=== PATIENT | male | born 1980 | race Caucasian/White ===

== ENCOUNTER 2024-06-01 13:08 | Emergency (ER) | payer OTHER, SELFPAY ==
[2024-06-01] VITALS (24 sets, daily range): BP systolic 91–137; BP diastolic 71–103; PULSE 101–114; RESP 24–30; TEMP 36.5; O2SAT 89–96; BMI 27.7
--- NOTE | 2024-06-01 13:36 | CRLHL7_ITS ---
For Patients: As a result of the Century Cures Act, medical imaging exams and procedure reports are released immediately into your electronic medical record. You may view this report before your referring provider. If you have questions, please contact your health care provider. INDICATION: Abdominal pain TECHNIQUE: CT abdomen and pelvis with 95 mL Isovue 370 COMPARISON: None. FINDINGS: Lower chest: Centrilobular nodules in the lower lobes likely infectious/inflammatory. Bronchial wall thickening Liver: Normal in size and attenuation. No suspicious masses. Gallbladder and bile ducts: No stones or inflammation. No biliary dilatation. Pancreas: Unremarkable. No mass or inflammation. Spleen: Normal in size. No masses. Adrenal glands: Normal in size. No nodules. Kidneys: Left renal cyst. GI tract: Abundant stool in the colon. Appendectomy. Bowel appears unremarkable. Vasculature: Abdominal aorta is normal in caliber. Lymph nodes: No lymphadenopathy. Peritoneum/Abdominal Wall: Unremarkable. No sign of mass or infiltration. No free air or significant free fluid. Pelvis: Unremarkable. No pelvic masses. Bones: Unremarkable for age. IMPRESSION: 1. No acute findings in the abdomen or pelvis. Please note that all CT scans at this facility use dose modulation, iterative reconstruction, and/or weight-based dosing when appropriate to reduce radiation dose to as low as reasonably achievable. Dictated by Marily Padilla MD @ 06/01/2024 4:27:50 PM (Electronically Signed)
--- NOTE | 2024-06-01 13:36 | CRLHL7_ITS ---
For Patients: As a result of the Century Cures Act, medical imaging exams and procedure reports are released immediately into your electronic medical record. You may view this report before your referring provider. If you have questions, please contact your health care provider. INDICATION: Shortness of breath previous pneumonia TECHNIQUE: CT chest with 95 mL Isovue 370 COMPARISON: None. FINDINGS: Lungs and pleura: Diffuse bronchial wall thickening with diffuse centrilobular nodules findings likely infectious/inflammatory. No effusion. 6 millimeter nodule right lower lobe 5/128 Heart and vasculature: Heart size is normal. Thoracic aorta and pulmonary artery are normal in caliber. No pulmonary emboli. Lymph nodes/mediastinum: No mediastinal, hilar, or axillary adenopathy. Chest wall: No masses. Upper abdomen: No significant findings. Bones: Unremarkable for age. IMPRESSION: 1. No pulmonary emboli. Diffuse bronchial wall thickening with diffuse subtle centrilobular nodules likely infectious/inflammatory. 2. 6 millimeter right lower lobe pulmonary nodule follow-up per Fleischner society guidelines Please note that all CT scans at this facility use dose modulation, iterative reconstruction, and/or weight-based dosing when appropriate to reduce radiation dose to as low as reasonably achievable. Dictated by Marily Padilla MD @ 06/01/2024 4:05:41 PM (Electronically Signed)
[2024-06-01] MEDS: ALBUTEROL SULFATE 2.5 MG/3 ML VIAL.NEB NEB ×3 (14:06→16:06)
[2024-06-01 14:11] LABS: Lactate Sepsis w/Reflex* 1.6 mmol/L (0.5-1.9)
[2024-06-01 14:12] LABS: Basophils Percent Auto 0.4 % (0.0-3.0); Eosinophils Percent Auto 2.3 % (0.0-7.0); Hematocrit 45.3 % (37.0-53.0); Hemoglobin* 15.2 gm/dL (13.5-17.5); Immature Granulocytes Pct Auto 0.2 %; Lymphocytes Percent Auto 13.8 % (20-44); Mean Corpuscular HGB Conc 34 gm/dL (32-36); Mean Corpuscular Hemoglobin 30 pg (26-34); Mean Corpuscular Volume 89 fL (80-100); Neutrophils Percent Auto 76.3 % (42.0-72.0); Platelet Count* 295 K/uL (140-440); Red Blood Count 5.08 m/uL (4.30-5.90); White Blood Count* 14.06 K/uL (4.50-11.00)
[2024-06-01 14:14] LABS: Slide Review Reflex No
[2024-06-01 14:27] LABS: Albumin* 4.3 g/dL (3.3-5.0); Chloride* 104 mmol/L (96-114); Potassium* 4.8 mmol/L (3.6-5.1); Sodium* 137 mmol/L (135-149)
[2024-06-01 14:29] LABS: Creatinine* 1.2 mg/dL (0.5-1.5); Est. Creatinine Clearance* 88.78; Estimated Glomerular Filt Rate 76 ml/min; Lipase* 76 U/L (23-300)
[2024-06-01 14:30] LABS: Alanine Aminotransferase* 17 U/L (4-50); Alkaline Phosphatase* 30 U/L (40-150); Anion Gap 8 mEq/L (7-15); Aspartate Amino Transferase* 25 U/L (12-35); Bilirubin Total* 0.9 mg/dL (0.1-1.5); Blood Urea Nitrogen* 25 mg/dL (5-24); Calcium* 8.7 mg/dL (8.4-10.6); Carbon Dioxide* 25 mmol/L (20-32); Glucose* 90 mg/dL (60-115); Magnesium* 2.3 mg/dL (1.5-2.6); Total Protein* 7.1 g/dL (6.0-8.3)
[2024-06-01 14:41] LABS: PCR FLU A Negative PCR FLU A (Negative); PCR FLU B Negative PCR FLU B (Negative); PCR RSV Negative PCR RSV (Negative); SARS PCR* Negative SARS-CoV-2 (Negative)
[2024-06-01 14:53] LABS: Appearance Urine Clear (Clear); Bilirubin Urine Negative (Negative); Blood Urine Negative (Negative); Color Urine Yellow (Yellow); Glucose Urine Negative (Negative); Ketones Urine Negative (Negative); Leukocyte Esterase Urine Negative (Negative); Nitrite Urine Negative (Negative); Protein Urine Negative (Negative); Urobilinogen Urine 0.2 (0.2-1.0)
[2024-06-01 15:11] LABS: RBC Urine 0-2 (0-2); WBC Urine 0-2 (0-5)
--- NOTE | 2024-06-01 16:06 | ED_ITS ---
HPI - SOB/Dyspnea General Date Seen: 06/01/24 Chief Complaint: Shortness of Breath/Dyspnea Stated Complaint: Shortness of breath, cough Time Seen by Provider: 06/01/24 13:09 Source: patient Mode of arrival: ambulatory Limitations: no limitations History of Present Illness HPI Narrative: Patient is a 44-year-old male presenting to the emergency department for shortness of breath and a cough. He states about 3 weeks ago he started developing a cough and was started to get more short of breath a week and half ago. That time he was started on amoxicillin and prednisone. He had a reaction to the prednisone and stop that after 2 days but continued the amoxicillin and finished out the course. He continued to have symptoms so was switched to azithromycin. He finished that earlier this week in symptoms persisted. States whenever he lays down he has a big coughing fit and is having difficulty sleeping due to this. He has been using an inhaler prescribed to him for this coughing episodes but has not been using a spacer for it. Has not noticed any improvement with the inhalers. Denies any history of COPD or asthma. Has not had symptoms like this before. Has not had any fevers at home. Denies chest pain, abdominal pain, headache, lightheadedness, dizziness, weakness, numbness. No other concerns noted at this time. Of note he is also having issues with constipation. He has been having issues constipation now for several weeks also. He does note he has had previous surgeries on his small intestine and has had frequent small bowel obstructions since then. He has had small bowel movement over the past few weeks every couple days but they are not his normal amount. He is having some abdominal discomfort that has been persistent for the past 3 weeks that he gets whenever he gets very constipated. Has been using MiraLax without much improvement. Related Data Home Medications ?Medication ?Instructions ?Recorded ?Confirmed zolpidem 10 mg tablet 10 mg PO QPM PRN insomnia 05/20/24 05/20/24 Previous Rx's ?Medication ?Instructions ?Recorded albuterol sulfate 90 mcg/actuation 2 puff inhalation Q4-6H PRN 05/20/24 aerosol inhaler shortness of breath or wheezing #6.7 grams benzonatate 200 mg capsule 200 mg PO QHS PRN cough #10 caps 05/20/24 azithromycin 250 mg tablet See Rx Instructions PO .COMPLEX #6 05/24/24 tabs fluticasone propionate 110 1 puff inhalation BID #12 grams 06/01/24 mcg/actuation HFA aerosol inhaler ipratropium bromide 17 1 puff inhalation QID PRN 06/01/24 mcg/actuation HFA aerosol inhaler shortness of breath or wheezing #12.9 grams levofloxacin 750 mg tablet 750 mg PO Q24H #5 tabs 06/01/24 prednisone 20 mg tablet 40 mg (2 x 20 mg) PO DAILY #10 tabs 06/01/24 Allergies Allergy/AdvReac Type Severity Reaction Status Date / Time prednisone Allergy Verified 06/01/24 14:44 Review of Systems Status of ROS: Reports: 10 or more systems reviewed and unremarkable except as noted in History and below PFSH PFS Social History Smoking Status: Never smoker Do you use any of these nicotine containing products: None Second hand tobacco smoke exposure: No How often do you have a drink containing alcohol: never How often do you have six or more drinks on one occasion: Never AUDIT-C Alcohol total score: 0 Non-prescribed substance use: denies use service: Yes Exam Narrative: Exam Narrative: Const: Well-nourished, Well-developed, in moderate distress Eyes: PERRL, no conjunctival injection, and symmetrical lids HENT: Atraumatic external nose and ears. Moist mucous membranes. Neck: Symmetric, trachea midline, No thyromegaly. CVS: Tachycardic, No murmurs or gallops. Peripheral pulses 2+ and equal in all extremities RESP: Increased respiratory effort noted with diffuse mild to moderate wheezing. Tachypneic GI: Mild diffuse abdominal tenderness, Nondistended, No rebound or guarding. MSK:Extremities w/o deformity, Normal Active ROM Skin: Warm, Dry. No rashes or lesions. Neuro: Normal Muscle tone, No focal neurological deficits. Psych: Awake, Alert, & Oriented x3. Appropriate mood and affect. Const: Vital Signs, click to edit/add: Vital Signs - 24 hr 06/01/24 13:16 06/01/24 13:17 06/01/24 13:17 Temperature 97.7 F Pulse Rate 103 H 105 H Pulse Rate [Pulse Oximeter] 106 H Respiratory Rate 30 H Blood Pressure Blood Pressure [Ri ght Upper Arm] 115/94 H Pulse Oximetry 96 96 96 Oxygen Delivery Me thod Room Air 06/01/24 13:19 06/01/24 13:30 06/01/24 13:32 Temperature Pulse Rate 106 H 105 H 101 H Pulse Rate [Pulse Oximeter] Respiratory Rate 28 H 26 H Blood Pressure 115/94 H 116/92 H Blood Pressure [Ri ght Upper Arm] Pulse Oximetry 95 94 95 Oxygen Delivery Me thod 06/01/24 13:45 06/01/24 14:00 06/01/24 14:03 Temperature Pulse Rate 104 H 105 H 107 H Pulse Rate [Pulse Oximeter] Respiratory Rate 24 Blood Pressure 114/77 Blood Pressure [Ri ght Upper Arm] Pulse Oximetry 95 94 94 Oxygen Delivery Me thod 06/01/24 14:15 06/01/24 14:33 06/01/24 14:35 Temperature Pulse Rate 107 H 108 H 105 H Pulse Rate [Pulse Oximeter] Respiratory Rate Blood Pressure 137/83 Blood Pressure [Ri ght Upper Arm] Pulse Oximetry 93 94 95 Oxygen Delivery Me thod 06/01/24 14:45 06/01/24 15:00 06/01/24 15:02 Temperature Pulse Rate 102 H 111 H 106 H Pulse Rate [Pulse Oximeter] Respiratory Rate 24 28 H Blood Pressure 126/84 Blood Pressure [Ri ght Upper Arm] Pulse Oximetry 94 92 91 Oxygen Delivery Me thod 06/01/24 15:03 06/01/24 15:15 06/01/24 15:30 Temperature Pulse Rate 111 H 103 H 107 H Pulse Rate [Pulse Oximeter] Respiratory Rate 24 Blood Pressure Blood Pressure [Ri ght Upper Arm] Pulse Oximetry 91 96 94 Oxygen Delivery Me thod 06/01/24 15:32 06/01/24 15:45 06/01/24 16:00 Temperature Pulse Rate 110 H 109 H 112 H Pulse Rate [Pulse Oximeter] Respiratory Rate 26 H 29 H Blood Pressure 110/78 Blood Pressure [Ri ght Upper Arm] Pulse Oximetry 93 91 89 Oxygen Delivery Me thod 06/01/24 16:02 06/01/24 16:15 06/01/24 16:30 Temperature Pulse Rate 108 H 103 H 106 H Pulse Rate [Pulse Oximeter] Respiratory Rate Blood Pressure 122/103 H Blood Pressure [Ri ght Upper Arm] Pulse Oximetry 89 95 93 Oxygen Delivery Me thod 06/01/24 16:32 Temperature Pulse Rate 114 H Pulse Rate [Pulse Oximeter] Respiratory Rate 28 H Blood Pressure 91/71 Blood Pressure [Ri ght Upper Arm] Pulse Oximetry 91 Oxygen Delivery Me thod Course Vital Signs Vital signs: Initial Vital Signs Pulse Rate 103 H 06/01/24 13:16 Pulse Oximetry 96 06/01/24 13:16 Vital Signs Pulse Rate 103 H 06/01/24 13:16 Pulse Oximetry 96 06/01/24 13:16 Temperature 97.7 F 06/01/24 13:17 Pulse Rate 114 H 06/01/24 16:32 Respiratory Rate 28 H 06/01/24 16:32 Blood Pressure 91/71 06/01/24 16:32 Pulse Oximetry 91 06/01/24 16:32 Oxygen Delivery Method Room Air 06/01/24 13:17 Medications Administered Medications: Discontinued Medications Generic Name Dose Route Start Last Admin Trade Name Freq PRN Reason Stop Dose Admin Albuterol 2.5 mg 06/01/24 13:36 06/01/24 14:06 Albuterol Sulfate 2.5 Mg/3 Ml Vial.[facility] 06/01/24 13:37 2.5 mg ONCE ONE Administration Albuterol 2.5 mg 06/01/24 14:56 06/01/24 15:07 Albuterol Sulfate 2.5 Mg/3 Ml Vial.[facility] 06/01/24 14:57 2.5 mg ONCE ONE Administration Albuterol 2.5 mg 06/01/24 15:58 06/01/24 16:06 Albuterol Sulfate 2.5 Mg/3 Ml Vial.[facility] 06/01/24 15:59 2.5 mg ONCE ONE Administration MDM - SOB/Dyspnea MDM Narrative Medical decision making narrative: Patient is a 44-year-old male presenting for shortness of breath and a cough. For this he has already done a COVID test a couple days ago but was not tested for flu so I will test him for COVID/flu/RSV. There is some small concern for a PE but concerned also plan doing a CT scan of his chest to look for signs of pneumonia and pain a doing a CT scan of his abdomen pelvis with IV contrast to look for any abdominal abnormalities that could explain his abdominal pain although straight do at doing a CTA of the chest. I also ordered a lipase, magnesium, urinalysis, CBC, CMP, EKG, troponin. Lactate was ordered as he is tachycardic and tachypneic with recent pneumonia so does meet sirs. I will also give him albuterol to see if that helps. Did have improvement with the albuterol. Lab work is all returned showing no concerning abnormalities other than a white count of 14.06. This could be sign of persistent pneumonia. COVID/flu/RSV within normal limits. Urinalysis shows no concerning findings. Troponin an EKG showed no concerning findings other t gleason tachycardia. Tachycardia is likely from the shortness of breath. He had the improvement with the albuterol but states only last about 30 minutes I will try 2nd dose. The 2nd dose helped more and a 3rd dose was given. At this point he was feeling better and repeat examination shows much improved work of breathing and no more wheezing. He satting about 90-94%. Overall he looks much better. CTA of the chest does not show sign of PE but there is diffuse bronchial wall thickening that could be either infectious or inflammatory. Considering everything at this time out treated as infectious and place him on antibiotics. With all this coughing and persisted along symptoms after speaking to the patient I will test him for pertussis also. Patient is feeling well for at this point and states he is not feel like he needs stay in the hospital. His heart rate is now ranging from the high 90s to low 100s. I am comfortable discharging him a will also prescribe him of spacer for his inhalers and prednisone. He states previously he had a reaction for prednisone but states that the only time he has ever had a reaction and would like to try it again since that usually helps he has had pneumonia in the past. CT scan of the abdomen pelvis shows quite a bit of constipation and after long conversation with him about this also I will give him information for bowel cleanout regimen similar to colonoscopies. He states he has had colonoscopy before and that his previous bowel cleanout regimen fully cleaned them out. Patient will be discharged at this time. Lab Data Labs: Lab Results 06/01/24 06/01/24 06/01/24 Range/Units 13:57 14:45 16:45 WBC 14.06 H (4.50-11.00) K/uL RBC 5.08 (4.30-5.90) m/uL Hgb 15.2 (13.5-17.5) gm/dL Hct 45.3 (37.0-53.0) % MCV 89 (80-100) fL MCH 30 (26-34) pg MCHC 34 (32-36) gm/dL RDW Coeff of Ian 12.0 (11.5-15.5) % Plt Count 295 (140-440) K/uL Neut % (Auto) 76.3 H (42.0-72.0) % Lymph % (Auto) 13.8 L (20-44) % [place] % (Auto) 7.0 (0.0-11.0) % Eos % (Auto) 2.3 (0.0-7.0) % Baso % (Auto) 0.4 (0.0-3.0) % Neut # (Auto) 10.70 H (1.7-7.0) K/uL Lymph # (Auto) 1.90 (0.90-2.90) K/uL [place] # (Auto) 1.00 H (0.00-0.90) K/UL Eos # (Auto) 0.30 (0.00-0.50) K/uL Baso # (Auto) 0.10 (0.00-0.30) K/uL Abs Immat Gran (auto) 0.00 (0.00-0.30) K/uL Imm/Tot Granulo (auto) 0.2 % Sodium 137 (135-149) mmol/L Potassium 4.8 (3.6-5.1) mmol/L Chloride 104 (96-114) mmol/L Carbon Dioxide 25 (20-32) mmol/L Anion Gap 8 (7-15) mEq/L BUN 25 H (5-24) mg/dL Creatinine 1.2 (0.5-1.5) mg/dL Estimated Creat Clear 88.78 Estimated GFR 76 ml/min Glucose 90 (60-115) mg/dL Lactate 1.6 (0.5-1.9) mmol/L Calcium 8.7 (8.4-10.6) mg/dL Magnesium 2.3 (1.5-2.6) mg/dL Total Bilirubin 0.9 (0.1-1.5) mg/dL AST 25 (12-35) U/L ALT 17 (4-50) U/L Alkaline Phosphatase 30 L (40-150) U/L Total Protein 7.1 (6.0-8.3) g/dL Albumin 4.3 (3.3-5.0) g/dL Lipase 76 (23-300) U/L Urine Color Yellow (Yellow) Urine Appearance Clear (Clear) Urine pH 5.0 (5.0-8.5) Ur Specific [place] 1.020 (1.000-1.030) Urine Protein Negative (Negative) Urine Glucose (UA) Negative (Negative) Urine Ketones Negative (Negative) Urine Blood Negative (Negative) Urine Nitrite Negative (Negative) Urine Bilirubin Negative (Negative) Urine Urobilinogen 0.2 (0.2-1.0) Ur Leukocyte Esterase Negative (Negative) Urine RBC 0-2 (0-2) Urine WBC 0-2 (0-5) Ur Squamous Epith Cells None (None-Few) Urine Bacteria None (None) SARS-CoV-2 (PCR) (Negative) Influenza Type A (PCR) (Negative) Influenza Type B (PCR) (Negative) RSV (PCR) (Negative) Lab Acknowledgement New Spec Needed POC Troponin I 0.00 L (0.01-0.04) ng/ml 06/01/24 Range/Units Unknown WBC (4.50-11.00) K/uL RBC (4.30-5.90) m/uL Hgb (13.5-17.5) gm/dL Hct (37.0-53.0) % MCV (80-100) fL MCH (26-34) pg MCHC (32-36) gm/dL RDW Coeff of Ian (11.5-15.5) % Plt Count (140-440) K/uL Neut % (Auto) (42.0-72.0) % Lymph % (Auto) (20-44) % [place] % (Auto) (0.0-11.0) % Eos % (Auto) (0.0-7.0) % Baso % (Auto) (0.0-3.0) % Neut # (Auto) (1.7-7.0) K/uL Lymph # (Auto) (0.90-2.90) K/uL [place] # (Auto) (0.00-0.90) K/UL Eos # (Auto) (0.00-0.50) K/uL Baso # (Auto) (0.00-0.30) K/uL Abs Immat Gran (auto) (0.00-0.30) K/uL Imm/Tot Granulo (auto) % Sodium (135-149) mmol/L Potassium (3.6-5.1) mmol/L Chloride (96-114) mmol/L Carbon Dioxide (20-32) mmol/L Anion Gap (7-15) mEq/L BUN (5-24) mg/dL Creatinine (0.5-1.5) mg/dL Estimated Creat Clear Estimated GFR ml/min Glucose (60-115) mg/dL Lactate (0.5-1.9) mmol/L Calcium (8.4-10.6) mg/dL Magnesium (1.5-2.6) mg/dL Total Bilirubin (0.1-1.5) mg/dL AST (12-35) U/L ALT (4-50) U/L Alkaline Phosphatase (40-150) U/L Total Protein (6.0-8.3) g/dL Albumin (3.3-5.0) g/dL Lipase (23-300) U/L Urine Color (Yellow) Urine Appearance (Clear) Urine pH (5.0-8.5) Ur Specific [place] (1.000-1.030) Urine Protein (Negative) Urine Glucose (UA) (Negative) Urine Ketones (Negative) Urine Blood (Negative) Urine Nitrite (Negative) Urine Bilirubin (Negative) Urine Urobilinogen (0.2-1.0) Ur Leukocyte Esterase (Negative) Urine RBC (0-2) Urine WBC (0-5) Ur Squamous Epith Cells (None-Few) Urine Bacteria (None) SARS-CoV-2 (PCR) Negative SARS-CoV-2 (Negative) Influenza Type A (PCR) Negative PCR FLU A (Negative) Influenza Type B (PCR) Negative PCR FLU B (Negative) RSV (PCR) Negative PCR RSV (Negative) Lab Acknowledgement POC Troponin I (0.01-0.04) ng/ml Imaging Data CTA chest: Attestation: I have reviewed the pertinent imaging results. Radiologist's impression: 1. No pulmonary emboli. Diffuse bronchial wall thickening with diffuse subtle centrilobular nodules likely infectious/inflammatory. 2. 6 millimeter right lower lobe pulmonary nodule follow-up per Fleischner society guidelines Please note that all CT scans at this facility use dose modulation, iterative reconstruction, and/or weight-based dosing when appropriate to reduce radiation dose to as low as reasonably achievable. Dictated by Marily Padilla MD @ 06/01/2024 4:05:[address] scan abdomen pelvis: Attestation: I have reviewed the pertinent imaging results. Radiologist's impression: 1. No acute findings in the abdomen or pelvis. Please note that all CT scans at this facility use dose modulation, iterative reconstruction, and/or weight-based dosing when appropriate to reduce radiation dose to as low as reasonably achievable. Dictated by Marily Padilla MD @ 06/01/2024 4:27:50 PM ECG Data Attestation: I personally reviewed and interpreted this ECG as follows: Prior ECG tracings: not available for review Interpretation: Sinus tachycardia with a rate of 115 beats per minute, normal intervals, normal axis, no ST or T-wave abnormalities Discharge Plan Discharge Clinical Impression: Wheezing Pneumonia Qualifiers: Pneumonia type: due to unspecified organism Laterality: unspecified laterality Lung location: unspecified part of lung Qualified Code(s): J18.9 - Pneumonia, unspecified organism Patient Disposition: Home, Self-Care Condition: Improved Instructions: How to Use a Metered-Dose Inhaler and a Spacer (DC) Additional Instructions: You do have a 6 mm lung nodule that you should follow up with the primary care provider about. Use the spacer for your inhalers. Take the ipratropium and albuterol as needed every 4 hours for her symptoms. Use Flovent twice daily for maintenance. If he started noticing in her reaction to the prednisone again stop taking it immediately. Return to emergency department for any new or worsening symptoms. Have close follow-up with primary care provider Here is a bowel cleanout regiment: ?2 - Bisacodyl tablets (Dulcolax? laxative NOT Dulcolax? stool softener) each tablet contains 5 mg of bisacodyl ?1 - 8.3 ounce bottle of Polyethylene Glycol (PEG) 3350 Powder (MiraLAX, SmoothLAX, ClearLAX or generic equivalent) 64 oz. Gatorade? (No red colored flavors) Regular Gatorade?, Gatorade G2?, Powerade?, Powerade Zero?, Pedialyte or Propel?, Liquid IV, and other electrolyte beverages are acceptable. Red flavors are not allowed; all other colors (yellow, green, orange, purple, blue) are okay. It is also okay to buy two 2.12 oz packets of powdered Gatorade that can be mixed with water to a total volume of 64 oz of liquid. ? Simethicone 80 mg or 125 mg tablets, chewables, or softgels -Simethicone is available over the counter in a variety of forms and dosages. Capsules, chewable tablets, and liquid are all acceptable forms. - If you are buying 125 mg tablets, purchase enough simethicone to take 2 tablets. -If you are buying 80 mg tablets, purchase enough to take 3 tablets. ?1 - 10 oz. bottle Magnesium Citrate (No red colored flavors) It is also okay for you to use a 0.5 ounce package of powdered magnesium citrate (17 grams) mixed with 10 ounces of water. ?Tomorrow begin Clear Liquid Diet (clear liquids include things you can see through). Examples of a clear liquid diet include: water, clear broth or bouillon (gluten free options available), Gatorade, Pedialyte or Powerade, carbonated and non-carbonated soft drinks (Sprite, 7-Up, Gingerale), strained fruit juices without pulp (apple, white grape, white cranberry), Jell-O, popsicles, and up to one cup of black coffee or tea (no milk or cream) each day. The following are not allowed on a clear liquid diet: red liquids, alcoholic beverages, dairy products, protein shakes, cream broths, juice with pulp, products containing oil and chewing tobacco. For additional details on following a clear liquid diet, please see https://www.mngi.com/conditions/kgccj-rqjxzj-pneo ?Take 2 Bisacodyl (Dulcolax) tablets ?4-6 hour later Drink Miralax ? Gatorade preparation Mix 1 bottle of Miralax with 64 oz. of Gatorade in a large pitcher. Drink 1 - 8 oz. glass of the Miralax/Gatorade solution. Continue drinking 1 - 8 oz. glass every 15 minutes thereafter until the mixture is gone With the last glass of Miralax ? Gatorade solution: take 240-250 mg of simethicone. -Simethicone is available over the counter in a variety of forms and dosages. Capsules, chewable tablets, and liquid are all acceptable forms. -Take enough of the medication to total between 240-250 mg. For example, if you have -125 mg chewable tablets, take 2 tablets to total 250 mg. -80 mg tablets, take 3 tablets to total 240 mg. ?The next day take 10 ounces of magnesium citrate Prescriptions: New levofloxacin 750 mg tablet 750 mg PO Q24H Qty: 5 0RF ipratropium bromide 17 mcg/actuation HFA aerosol inhaler 1 puff inhalation QID PRN (Reason: shortness of breath or wheezing) Qty: 12.9 2RF prednisone 20 mg tablet 40 mg PO DAILY Qty: 10 0RF fluticasone propionate 110 mcg/actuation HFA aerosol inhaler 1 puff inhalation BID Qty: 12 2RF No Action zolpidem 10 mg tablet 10 mg PO QPM PRN (Reason: insomnia) albuterol sulfate 90 mcg/actuation HFA aerosol inhaler 2 puff inhalation Q4-6H PRN (Reason: shortness of breath or wheezing) Qty: 6.7 0RF benzonatate 200 mg capsule 200 mg PO QHS PRN (Reason: cough) Qty: 10 0RF azithromycin 250 mg tablet See Rx Instructions PO .COMPLEX Qty: 6 0RF Rx Instructions: For 250 mg dose pack: take 500 mg today (day 1), then 250 mg for 4 days (days 2-5) PO Follow Up/Referrals: Provider,Not a Local [Primary Care Provider] - Stand Alone Forms: [employer] Info Instructions
[2024-06-01 17:00] LABS: Lab Add On Test New Spec Needed
== END 2024-06-01 17:36 | disposition home or self-care (01) ==
PROVIDERS: Emergency Provider Student in an Organized Health Care Education/Training Program
DX: J18.9 Pneumonia, unspecified organism (principal)
CPT/HCPCS: 36415; 71275; 74177; 80053; 81001; 83605; 83690; 83735; 84484; 85025; 87631; 87798; 93005; 94640; 99284; 99285; Q9967